=== PATIENT | male | born 1985 | race American Indian/Alaskan Native ===

== ENCOUNTER 2018-12-01 12:03 | Emergency (ER) | payer OTHER ==
[2018-12-01] MEDS ORDERED: PERCOCET 5/325 PO STA (12:12)
[2018-12-01 12:13] VITALS: BP 166/97
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
--- NOTE | 2018-12-01 14:46 | Cat Scan Report ---
PROCEDURE: CT FACIAL BONES WO CON TECHNIQUE: Computerized tomography of the facial bones and soft tissues with axial and coronal secti ons performed from the cranial aspect of the frontal sinuses to the caudal portion of the mandible wi thout contrast material. Automated exposure control, adjustment of mA and/or kV according to patient size, or iterative reconstruction dose optimization techniques were utilized. CT DOSE LENGTH PRODUCT: 635 mGycm HISTORY: left sided jaw/facial pain and trauma COMPARISONS: None . FINDINGS: No fracture is seen. Temporomandibular joints are intact. Paranasal sinuses and mastoids are well aer ated. Numerous teeth are absent. There are numerous dental caries. IMPRESSION: No fracture is identified . This document is electronically signed by Martina Patel MD., Dec 01 2018 02:44:22 PM ET
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
== END 2018-12-01 15:15 | disposition left against medical advice (07) ==
LOC: ED 12:03
DX: S00.83XA Contusion of other part of head, initial encounter (principal); H92.02 Otalgia, left ear; I10 Essential (primary) hypertension; Z88.0 Allergy status to penicillin; X58.XXXA Exposure to other specified factors, initial encounter; Y93.89 Activity, other specified; Y92.89 Other specified places as the place of occurrence of the external cause; Y99.8 Other external cause status
CPT/HCPCS: 70150; 70486; 99284